=== PATIENT | male | born 1980 | race Native Hawaiian/Other Pacific Islander ===

== ENCOUNTER 2016-04-01 09:34 | Outpatient (CLI) | payer OTHER ==
[2016-04-01 10:59] LABS: PLATELET COUNT 218 K/uL (142-355)
[2016-04-01 11:11] LABS: SODIUM 136 mmol/L (136-145)
== END 2016-04-01 19:09 | disposition home or self-care (01) ==
LOC: LABW 09:34
PROVIDERS: Family Medicine
DX: R07.81 Pleurodynia (principal); R05 Cough; G89.29 Other chronic pain; F17.200 Nicotine dependence, unspecified, uncomplicated; I10 Essential (primary) hypertension; F41.8 Other specified anxiety disorders
CPT/HCPCS: 36415; 80053; 80061; 81000; 82043; 82306; 82570; 84439; 84443; 84550; 85027

== ENCOUNTER 2016-12-21 10:27 | Emergency (ER) | payer OTHER ==
[~2016-12-21] VITALS: Ht 182.9 cm; Wt 89.4 kg
== END 2016-12-21 12:30 | disposition home or self-care (01) ==
LOC: ED 10:27
DX: L02.214 Cutaneous abscess of groin (principal)
CPT/HCPCS: 99282; J1885